=== PATIENT | female | born 1970 | race Caucasian/White ===

== ENCOUNTER 2025-09-23 16:41 | Emergency (ER) | payer BC, SELFPAY ==
[2025-09-23 16:43] VITALS: BP 130/90
--- NOTE | 2025-09-23 17:54 | ED.SKININJ ---
HPI-Injury
General
Chief Complaint: Bite
Source: patient
Exam Limitations: none
Time Seen by Provider: 09/23/25 16:54
Nursing documentation reviewed up to this point in time: agreed with
History of Present Illness-Injury
Is this injury a work related problem?: No
Is pt an associate of [facility]?: No
Initial Injury comments:
Patient to the emergency department for evaluation of right hand injury. She states she was riding in a car with her sister and her sisters dog. Patient states she reached for a box and dog bit her. She sustained a bite to her right dorsal fourth
finger and fifth finger. Injury occurred just prior to arrival. Dog is up-to-date with his rabies series.
Past History
Past History
ED Past Medical History: None
Review of Systems
Review of Systems
Allergies reviewed?: Yes
All Other Systems: ROS reviewed and negative except as documented in HPI and ROS
Constitutional: Reports no symptoms
Musculoskeletal: Reports joint pain (Pain to right 4th and 5th fingers)
Skin: Reports other (Dog bite to right dorsal 4th and 5th fingers)
Neurological: Reports no symptoms
Psychiatric: Reports no symptoms
Skin Exam
Bite
Right Fourth Finger:
Type: animal
Skin has: full thickness laceration
Laceration length in cm: 1
Surrounding area around bite has: no evidence of erythema
Distal skin color and temperature: normal-warm & good color
Normal distal neurovascular exam: Yes
Right Fifth Finger:
Type: animal
Skin has: full thickness laceration
Laceration length in cm: 1
Surrounding area around bite has: no evidence of erythema
Distal skin color and temperature: normal-warm & good color
Normal distal neurovascular exam: Yes
Phy Exam
General Physical Exam
General Presentation: well appearing and mild distress
General age: appears stated age
General Skin: warm and dry
General Habitus: normal
General Mental: alert
Musculoskeletal Exam
Musculoskeletal Exam: full ROM and neuro vasc intact
Skin Exam
Skin Exam: normal color, warm/dry and no rash
Psychiatric Exam
Psychiatric Exam: normal mood/affect
Course
Orders/Labs/Results
Orders:
Orders
09/23/25 17:09
Hand, Right 3 View [CR Hand - Right Min 3 Views] Urgent
Comment:
Reason For Exam: bite, attn fingers 4,5
09/23/25 17:46
Doxycycline [Vibramycin] 100 mg PO NOW STA
MetroNIDAZOLE [Flagyl] 500 mg PO NOW STA
09/23/25 18:01
Ibuprofen [Motrin] 600 mg PO NOW STA
Vital Signs
Initial and Last Documented VS:
Initial Vital Signs
Temp Pulse Resp BP Pulse Ox
98.7 F 75 18 130/90 99
09/23/25 16:43 09/23/25 16:43 09/23/25 16:43 09/23/25 16:43 09/23/25 16:43
Last Documented Vital Signs
Temp Pulse Resp BP Pulse Ox
98.7 F 75 18 130/90 99
09/23/25 16:43 09/23/25 16:43 09/23/25 16:43 09/23/25 16:43 09/23/25 17:54
Procedures
Laceration Closure
Right Dorsal Fourth Finger:
Status of Wound: clean
Description of Wound Edges: sharp
Preparation: cleaned with saline and cleaned with Betadine
Anesthesia: 1% Lidocaine and Digital-Regional
Revision/Debridement: routine- no revision
Wound exploration: extensive cleaning of contaminated wound
Type of Closure: single layer closure
Skin Closure Material: 5-0 prolene
Right Dorsal Fifth Finger:
Status of Wound: clean
Description of Wound Edges: sharp
Preparation: cleaned with saline
Anesthesia: 1% Lidocaine and Digital-Regional
Revision/Debridement: routine- no revision
Wound exploration: explored to base- no FB
Type of Closure: single layer closure
Skin Closure Material: 5-0 prolene
*Radiology
Radiology exam reviewed: radiology read reviewed
*Pulse Oximetry
SaO2: 99
Oxygen Mode of Delivery: Room air
Patient hypoxic: no
*Critical Care Note
Total Time (30-74mins, 75-104mins- exclusive of procedures): Not Applicable
Update Note
Update Note:
Patient's emergency department for evaluation of dog bite to her right hand. She sustained a bite to her right 4th and 5th fingers. She has a laceration to both fingers. She has full range of motion to her fingers, no evidence of tendon injury.
X-ray reviewed no evidence of fracture or dislocation. Digital block with lidocaine 1% applied to both fingers. Wounds were cleansed with normal saline and Betadine. Wounds were then closed with 5-0 Prolene. She was placed on doxycycline and
Flagyl as she has an allergy to penicillin. She will be discharged home, close follow-up with PCP. Prescriptions were sent to her pharmacy. She was given instructions on signs and symptoms to return to the emergency department and she is
agreeable to this plan.
ED Attending Note
-
Portions of this chart may have been created with voice recognition software.� Occasional wrong word or��sound alike� substitutions may have occurred due to the inherent limitations of voice recognition software.
Discharge Plan
Departure
Patient Disposition: Home (Routine Discharge)
Date of Disposition: 09/23/25
Time of Disposition: 17:48
Patient with high blood pressure during this ER visit?: No
Condition: Good
Covid-19: Not Applicable
Discharge Problem:
Dog bite of hand
Instructions: Animal Bites (DC), Wound Care (DC), Laceration Repair With Stitches (DC)
Prescriptions:
New
doxycycline hyclate 100 mg capsule
100 mg PO BID Qty: 14 0RF
metronidazole 500 mg tablet
500 mg PO TID Qty: 21 0RF
Referrals:
Sherron Cochran MD [Family Provider, Internal Medicine]
Referral Note: Follow-up in 2 days for wound check. Sutures can be removed in 7 to 10 days.
Activity Restrictions/Additional Instructions:
Follow-up with your family doctor in 2 to 3 days for wound check. Sutures can be removed in 7 to 10 days. Return to the emergency room immediately for fever/chills, increasing pain/swelling/discharge from your wounds, or for any further concerns.
Interventions
Interventions:
*Risk Screen - Suicide Last Done: 09/23/25 16:43
*General Assessment Last Done: 09/23/25 16:43
*Neglect/Abuse Screening Last Done: 09/23/25 16:43
Discharge Date and Time
Print Language: [place]
[2025-09-23] MEDS: MOTRIN 600 MG PO (18:17)
[2025-09-23] MEDS: FLAGYL 500 MG PO (18:17)
[2025-09-23] MEDS: VIBRAMYCIN 100 MG PO (18:17)
[2025-09-23 18:39] VITALS: BP 129/84
== END 2025-09-23 18:41 | disposition home or self-care (01) ==
LOC: EMR 16:41
PROVIDERS: EMERGENCY PHYSICIAN Emergency Medicine; FAMILY PHYSICIAN Internal Medicine
DX: S61.214A Laceration without foreign body of right ring finger without damage to nail, initial encounter (principal); S61.216A Laceration without foreign body of right little finger without damage to nail, initial encounter; W54.0XXA Bitten by dog, initial encounter
CPT/HCPCS: 12001; 99283; 73130